=== PATIENT | female | born 1975 | race Caucasian/White ===

== ENCOUNTER 2023-10-03 15:58 | Emergency (ER) | payer OTHER, SELFPAY ==
--- NOTE | ~2023-10-03 | CT_ITS ---
CT brain wo con Ordering provider: Yvrose Torres PA-C History: 48 years Female with . headache, facial paresthesias . Comparison: None. Technique: CT of the head without contrast. Bones FINDINGS: BRAIN PARENCHYMA AND CSF SPACES: No midline shift, mass effect or hemorrhage. The brain parenchyma a nd CSF spaces are otherwise normal. VISUALIZED PARANASAL SINUSES: Left maxillary sinus disease. MASTOIDS: Well aerated. BONES: The bones appear intact. SOFT TISSUES: Visualized nasopharynx is normal. Superficial soft tissues are normal. IMPRESSION: No acute intracranial findings. Reviewed, dictated and finalized at location A.
[2023-10-03 16:00] VITALS: BP 166/95; PULSE 108; RESP 20; TEMP 36.4; O2SAT 98
--- NOTE | 2023-10-03 16:09 | ED.HA ---
HPI - Headache General Chief Complaint: Headache Stated Complaint: trouble swallowing Time Seen by Provider: 10/03/23 16:09 Focused HPI: This is a 48 year old female that presents to the emergency department for headache. Ongoing over the last couple of hours. Associated with facial paresthesias. Also reporting feeling like she is having difficulty swallowing. Denies vomiting, focal numbness or weakness. GENERAL: Well-appearing, well-nourished, and in no acute distress. HEAD: Normocephalic, atraumatic. CHEST: Clear to auscultation. ?No respiratory distress. HEART: Regular rate and rhythm.? NEURO: ?Alert and oriented x3. Patient screened in triage and initial orders placed.? ?Additional care and disposition to be based upon?diagnostic testing and treatment. Course Vital Signs Vital signs: Vital Signs Temperature 97.6 F 10/03/23 16:00 Pulse Rate 108 H 10/03/23 16:00 Respiratory Rate 20 10/03/23 16:00 Blood Pressure 166/95 H 10/03/23 16:00 Pulse Oximetry 98 10/03/23 16:00 Oxygen Delivery Room Air 10/03/23 16:00 Temperature 97.6 F 10/03/23 16:00 Pulse Rate 108 H 10/03/23 16:00 Respiratory Rate 20 10/03/23 16:00 Blood Pressure 166/95 H 10/03/23 16:00 Pulse Oximetry 98 10/03/23 16:00 Oxygen Delivery Room Air 10/03/23 16:00 MDM - Headache MDM Narrative Medical decision making narrative: Patient eloped after MSE before any further evaluation or management Lab Data 10/03/23 17:48 10/03/23 17:48 Labs: Lab Results 10/03/23 Range/Units 17:48 WBC Pending RBC Pending Hgb Pending Hct Pending MCV Pending MCH Pending MCHC Pending RDW Pending Plt Count Pending MPV Pending Immature Gran % (Auto) Pending Neut % (Auto) Pending Lymph % (Auto) Pending [place] % (Auto) Pending Eos % (Auto) Pending Baso % (Auto) Pending Lymph # (Auto) Pending [place] # (Auto) Pending Eos # (Auto) Pending Baso # (Auto) Pending Abs Immat Gran (auto) Pending Absolute Neuts (auto) Pending Absolute Nucleated RBC Pending Nucleated RBC % Pending PT Pending INR Pending APTT Pending Sodium Pending Potassium Pending Chloride Pending Carbon Dioxide Pending Anion Gap Pending BUN Pending Creatinine Pending Estim Creat Clear Calc Pending Estimated GFR Pending Glucose Pending Calcium Pending Total Bilirubin Pending AST Pending ALT Pending Alkaline Phosphatase Pending Total Protein Pending Albumin Pending Discharge Plan Discharge Patient Disposition: Left Without Being Sn Triaged Follow-up/Referrals: PHYSICIAN NOT ON STAFF,NONSTAFF [Primary Care Provider] -
[2023-10-03 17:56] LABS: Hematocrit 38.2 % (37.0-47.0); Hemoglobin 13.4 g/dL (12.0-15.0); Immature Platelet Fraction Pct 3.8 % (0.9-11.2); Mean Corpuscular HGB Conc 35.1 g/dl (32-36); Mean Corpuscular Hemoglobin 35.9 pg (26-34); Mean Corpuscular Volume 102.4 fl (80-100); Mean Platelet Volume 9.7 fl (7.4-10.4); Platelet Count Result 45 k/mm3 (150-375); Red Blood Count 3.73 M/mm3 (4.2-5.4); Red Cell Distribution Width 13.7 % (11.5-14.5); White Blood Count 6.5 K/mm3 (4.5-10.0)
--- NOTE | 2023-10-03 17:58 | PC.NURSE ---
Patient leaving with parent. Patient ambulatory out of ED with steady gait and in no obvious distress.
[2023-10-03 18:02] LABS: INR 0.9; Prothrombin Time 12.6 Seconds (11.1-14.7)
[2023-10-03 18:03] LABS: Partial Thromboplastin Time 27.3 Seconds (22.3-36.8)
[2023-10-03 18:06] LABS: Alanine Aminotransferase 118 U/L (6-35); Alkaline Phosphatase 214 U/L (38-126); Anion Gap 20 mmol/L (4-12); Aspartate Amino Transferase 389 U/L (14-36); Bilirubin,Total 1.5 mg/dL (0.2-1.3); Blood Urea Nitrogen 8 mg/dL (7-17); Calcium 8.4 mg/dL (8.4-10.2); Carbon Dioxide 29 mmol/L (22-30); Chloride 94 mmol/L (98-107); Estimated CRCL calculation 93 ml/min; Estimated Glomerular Filt Rate > 60; Glucose 91 mg/dL (65-110); Potassium 3.1 mmol/L (3.4-5.0); Sodium 143 mmol/L (137-145)
[2023-10-03 18:58] LABS: Band Neutrophils Percent 2 % (0-6); Lymphocytes Absolute Manual 2.14 K/mm3 (1.1-4.5); Monocytes Absolute Manual 0.45 K/mm3 (0.1-0.90); Monocytes Percent Manual 7 % (3-9); Neutrophils Percent Manual 58 % (46-73); Platelet Estimate Decreased (Adequate); Schistocytes None Seen; Total Cells Counted 100
== END 2023-10-03 18:24 | disposition left against medical advice (07) ==
LOC: ANHED 18:09
PROVIDERS: Emergency Provider Physician Assistant
DX: R51.9 Headache, unspecified (principal)
CPT/HCPCS: 36415; 70450; 80053; 85025; 85055; 85610; 85730; 99199

== ENCOUNTER 2023-10-05 12:54 | Emergency (ER) | payer OTHER, SELFPAY ==
[2023-10-05 13:09] VITALS: BP 165/83; PULSE 115; RESP 18; TEMP 36.7; O2SAT 98
--- NOTE | 2023-10-05 13:37 | ED.URI ---
HPI - URI/Sore Throat General Chief Complaint: Upper Respiratory Infection Stated Complaint: Swollen Glands Time Seen by Provider: 10/05/23 13:37 Source: patient Mode of arrival: ambulatory Limitations: no limitations History of Present Illness HPI Narrative: 48-year-old female presents with complaint of sinus congestion, postnasal drainage, runny nose for the past 2-3 weeks. Is visiting here from [place] due to her dad being ill. Is taking 1000 mg amoxicillin that she got from a friend times 14 days. Afebrile. Not taking any [id number] antihistamines because she does not like taking medications . Denies cough. No chest pain or shortness of breath. Was seen in the ER 2 days ago and had head CT. Showed sinus disease . Patient left without being seen. All systems reviewed and negative except as noted above. Related Data Allergies Allergy/AdvReac Type Severity Reaction Status Date / Time No Known Allergies Allergy Verified 10/05/23 13:19 Review of Systems Review of Systems: CONSTITUTIONAL: Denies fever, chills, or sweats. EYES: Denies visual changes, redness, or discharge. ENT: Reports rhinorrhea, congestion. Denies sore throat, or otalgia. CARDIOVASCULAR: Denies chest pain, palpitations, or edema. RESPIRATORY: Denies cough or dyspnea. GASTROINTESTINAL: Denies abdominal pain, nausea, vomiting, or diarrhea. GENITOURINARY: Denies dysuria or hematuria. SKIN: Denies rash or itching. MUSCULOSKELETAL: Denies back pain, joint pain, or myalgia. NEUROLOGIC: Denies headache, numbness, or weakness. PSYCHIATRIC: Denies anxiety or depression. All other systems reviewed are negative, except as documented in HPI. PMFSH Social History Social History (Updated 10/05/23 @ 13:42 by Gwen Reardon NP) Alcohol intake: current Drinks per week: 7 Alcohol use details: drinks at least 5-6 shots of whiskey daily Comments At time of signature, agree with nursing past medical, surgical, social and family history. There is no relevant family history pertinent to the presenting complaint. Exam Narrative: GENERAL: This is a well-nourished, well-developed patient, in no apparent distress. HEAD: normocephalic, atraumatic. EYES: PERRL. Sclera clear/white. Vision is grossly intact. EARS: External ears normal, auditory canals clear and without drainage, TMs normal without perforation. Hearing grossly intact. NOSE: External nose normal with mild congestion, clear nasal drainage, erythema and swelling to bilateral nares. THROAT: Mucous membranes moist, Erythema postnasal drainage NECK: Neck supple, non-tender without lymphadenopathy, masses or thyromegaly. CARDIOVASCULAR: Regular rate and rhythm without murmurs, gallops, or rubs. RESPIRATORY: Clear to auscultation. Breath sounds equal bilaterally. No wheezes, rales, or rhonchi. SKIN: warm, Dry, intact with no suspicious lesions or rash, good texture and turgor. NEURO: awake, alert, and oriented to person, place and time. There were no obvious focal neurologic abnormalities. EXTREMITIES: No joint tenderness, effusion, or edema noted. Course Course Level of Care: Express Care Visit Vital Signs Vital signs: Vital Signs Temperature 36.7 C 10/05/23 13:09 Pulse Rate 115 H 10/05/23 13:09 Respiratory Rate 18 10/05/23 13:09 Blood Pressure 165/83 H 10/05/23 13:09 Pulse Oximetry 98 10/05/23 13:09 Oxygen Delivery Room Air 10/05/23 13:09 Temperature 36.7 C 10/05/23 13:09 Pulse Rate 115 H 10/05/23 13:09 Respiratory Rate 18 10/05/23 13:09 Blood Pressure 165/83 H 10/05/23 13:09 Pulse Oximetry 98 10/05/23 13:09 Oxygen Delivery Room Air 10/05/23 13:09 reviewed MDM - URI/Sore Throat MDM Narrative Medical decision making narrative: Reviewed patient's labs from ER visit 09/30. patient's liver enzymes elevated. Discussed this with patient. She had admitted to drinking whiskey daily. States approximately 5-6 shots. Di
== END 2023-10-05 13:35 | disposition home or self-care (01) ==
PROVIDERS: Emergency Provider Nurse Practitioner Family; PCP Emergency Medicine
DX: J30.9 Allergic rhinitis, unspecified (principal); R94.5 Abnormal results of liver function studies
CPT/HCPCS: 99213; G0463

== ENCOUNTER 2023-10-12 08:23 | Emergency (ER) | payer OTHER, SELFPAY ==
[2023-10-12 08:34] VITALS: BP 168/88; PULSE 130; RESP 16; TEMP 36.4; O2SAT 100
[2023-10-12 08:35] VITALS: BP 168/88; PULSE 130; RESP 16; TEMP 36.4; O2SAT 100
[2023-10-12 09:00] VITALS: PULSE 123; O2SAT 98
--- NOTE | 2023-10-12 09:19 | ED.URI ---
HPI - URI/Sore Throat General Chief Complaint: Upper Respiratory Infection Stated Complaint: cough, runny nose Time Seen by Provider: 10/12/23 08:42 Source: patient, RN notes reviewed and old records reviewed Mode of arrival: ambulatory Limitations: no limitations History of Present Illness HPI Narrative: Patient presents today complaining of chronic cough and rhinorrhea for the past year, after moving from [place] to [place]. She also complains of a headache since last night. Patient was seen 1 week ago at [facility] for same symptoms, diagnosed with allergic sinusitis and prescribed a Medrol Dosepak, Claritin, and Flonase. She only picked up the Medrol Dosepak from the pharmacy and has finished it stating it did not help her symptoms much. She has not tried the Claritin or Flonase. Two days Prior to her previous visit, she visited [facility] ER. Head CT was done, but she did not stay for the visit. The has CT was read as sinus disease in the left maxillary sinus. Also prior to her last visit, patient took 14 days of amoxicillin, 1000 mg b.i.d., borrowed from a friend. States these antibiotics did not help her symptoms as well. She is hoping to get another antibiotic today during her visit. Related Data Home Medications Medication Instructions Recorded Confirmed No Home Medications 10/12/23 10/12/23 Allergies Allergy/AdvReac Type Severity Reaction Status Date / Time methylprednisolone AdvReac Nausea and Verified 10/12/23 08:34 [From Medrol] Vomiting Review of Systems Review of Systems: CONSTITUTIONAL: Denies body aches, fever, chills, or sweats. EYES: Denies visual changes, redness, or discharge. ENT: Denies congestion, sore throat, or otalgia.+ rhinorrhea, postnasal drip CARDIOVASCULAR: Denies chest pain, palpitations, or edema. RESPIRATORY: Denies dyspnea.+ cough GASTROINTESTINAL: Denies abdominal pain, nausea, vomiting, or diarrhea. GENITOURINARY: Denies dysuria or hematuria. SKIN: Denies rash, itching, or wounds. MUSCULOSKELETAL: Denies back pain, joint pain, or myalgia. NEUROLOGIC: Denies numbness, tingling, or weakness.+ headache PSYCH: Denies depression or anxiety. [facility] Social History Social History Alcohol intake: current Drinks per week: 7 Alcohol use details: drinks at least 5-6 shots of whiskey daily Comments At time of signature, I have reviewed and agree with nursing past medical, surgical, social and family history unless otherwise noted. Please see nursing chart for further information. There is no relevant family history pertinent to the presenting complaint Exam Narrative: GENERAL: Well-appearing, well-nourished, and in no acute distress. HEAD: Normocephalic, atraumatic. EYES: EOMI. No redness or drainage. Conjunctivae normal. ENT: Mucous membranes pink and moist. Nares clear. Nasal turbinates edematous with rhinorrhea. TMs normal bilaterally. Throat normal with small amount of postnasal drainage. Uvula midline. NECK: Normal AROM. Supple. No lymphadenopathy. CHEST: No respiratory distress. Clear to auscultation. HEART: Regular rate and rhythm. No murmur appreciated. EXTREMITIES: Normal range of motion. No edema. SKIN: Warm, dry, no rash. Capillary refill normal. Normal skin turgor. NEURO: No focal deficits. Alert and oriented x3. Gait steady. PSYCH: Normal affect. No signs of depression or anxiety. Course Course Level of Care: Express Care Visit Vital Signs Vital signs: Vital Signs Temperature 97.6 F 10/12/23 08:34 Pulse Rate 130 H 10/12/23 08:34 Respiratory Rate 16 10/12/23 08:34 Blood Pressure 168/88 H 10/12/23 08:34 Pulse Oximetry 100 10/12/23 08:34 Oxygen Delivery Room Air 10/12/23 08:34 Temperature 97.6 F 10/12/23 08:35 Pulse Rate 123 H 10/12/23 09:00 Respiratory Rate 16 10/12/23 08:35 Blood Pressure 168/88 H 10/12/23 08:35 Pulse Oximetry
== END 2023-10-12 09:00 | disposition home or self-care (01) ==
PROVIDERS: Emergency Provider Nurse Practitioner; PCP Family Medicine
DX: J30.9 Allergic rhinitis, unspecified (principal); K21.9 Gastro-esophageal reflux disease without esophagitis; Z86.16 Personal history of COVID-19
CPT/HCPCS: 99211; G0463

== ENCOUNTER 2023-10-12 14:32 | Observation (INO) | payer OTHER, SELFPAY ==
[2023-10-12] VITALS (11 sets, daily range): BP systolic 117–160; BP diastolic 67–106; PULSE 83–120; RESP 16–25; TEMP 36.8–37.1; O2SAT 99–100
--- NOTE | ~2023-10-12 | CT_ITS ---
EXAMINATION: CT brain wo con DATE: 10/12/2023 16:41 INDICATION: New onset seizure TECHNIQUE: Computed tomography (CT) of the head was performed without intravenous contrast. Sagittal and coronal reconstructions were performed. The mA was adjusted according to patient size. Iterative reconstruction technique was employed. The dose-length product was 529.67 mGy-cm. COMPARISON: head CT dated 10/03/23 FINDINGS: No acute intracranial hemorrhage, acute infarction or abnormal extra axial fluid collection. There is mild scattered nonspecific white matter hypoattenuation which is disproportionate for age. Ventricle s are normal and symmetric. No mass/mass effect. The orbits, paranasal sinuses and mastoid air cells are normal. IMPRESSION: 1. Mild scattered white matter hypoattenuation which is disproportionate for age. The differential di agnosis includes premature chronic small vessel ischemic disease (especially if the patient has cardi ovascular risk factors), demyelinating disease such as multiple sclerosis or acute disseminated encep halomyelitis (ADEM), drug/substance abuse, vasculitis, or reactive astrocytosis (gliosis) secondary t o nonspecific etiology. Could consider follow-up brain MRI for further evaluation as clinically indic ated. Reviewed, dictated and finalized at location A. IMPRESSION: 1. Mild scattered white matter hypoattenuation which is disproportionate for ag e. The differential diagnosis includes premature chronic small vessel ischemic disease (especially if the patient has cardiovascular risk factors), demyelinat ing disease such as multiple sclerosis or acute disseminated encephalomyelitis (ADEM), drug/substance abuse, vasculitis, or reactive astrocytosis (gliosis) se condary to nonspecific etiology. Could consider follow-up brain MRI for further evaluation as clinically indicated.
--- NOTE | ~2023-10-12 | US_ITS ---
EXAMINATION: US right upper quadrant DATE: 10/13/2023 09:38 INDICATION: Transaminitis. TECHNIQUE: Multiple grayscale and Doppler ultrasound images of the abdomen were obtained. COMPARISON: None FINDINGS: The visualized portions of the head and body of the pancreas are normal. There is diffuse h epatic steatosis. There is normal flow in main portal vein. The gallbladder is absent. The common mary t is normal and measures 2 mm. IMPRESSION: 1. Diffuse hepatic steatosis. Reviewed, dictated and finalized at location A.
--- NOTE | ~2023-10-12 | US_ITS ---
EXAMINATION: US pelvic complete w TV DATE: 10/13/2023 09:38 INDICATION: Menorrhagia. TECHNIQUE: Multiple transabdominal and transvaginal sonographic images of the pelvis were obtained. COMPARISON: None. FINDINGS: TRANSABDOMINAL ULTRASOUND: The uterus measures 5.9 x 2.9 x 4.5 cm. There is no free fluid in the pelvis. TRANSVAGINAL ULTRASOUND: The endometrial complex measures 4 mm in thickness. There are nabothian cysts in the cervix. The righ t ovary measures 2.7 x 1.2 x 1.7 cm. The left ovary measures 2.5 x 1.6 x 1.5 cm. There is normal vasc ular flow in the ovaries. IMPRESSION: 1. No etiology for the patient's symptoms. Reviewed, dictated and finalized at location A.
--- NOTE | 2023-10-12 16:22 | ECG_ITS ---
Test Date: 2023-10-12 17:49:33 Measurements Intervals [place] Rate: 107 P: 52 AR: 150 QRS: 46 QRSD: 78 T: -21 QT: 336 QTc: 450 Interpretive Statements SINUS TACHYCARDIA NONSPECIFIC ST & T-WAVE ABNORMALITY ABNORMAL ECG No previous ECG available for comparison Electronically Signed On 10-12-2023 18:24:21 CDT by Mark Owens M.D.
--- NOTE | 2023-10-12 16:24 | ED.AMS ---
HPI - Altered Mental Status General Chief Complaint: Altered Mental Status <Goldy MoonYURIDIA - Last Filed: 10/12/23 16:26> Stated Complaint: ams <Goldy MoonYURIDIA - Last Filed: 10/12/23 16:26> Time Seen by Provider: 10/12/23 16:24 <Goldy MoonYURIDIA - Last Filed: 10/12/23 16:26> patient presents via ems after having a 5 minutes witnessed seizure by her . patient's describes it as a grand mal seizure. patient had 5 minutes of post-ictal. patient has no hx of seizure or any medical issues. PE: A&OX3, tachycardic with no murmur, BS CTA, GCS 15 <Goldy MoonYURIDIA - Last Filed: 10/12/23 16:26> patient presents via ems after having a 5 minutes witnessed seizure by her . patient's describes it as a grand mal seizure. patient had 5 minutes of post-ictal. patient has no hx of seizure or any medical issues. PE: A&OX3, tachycardic with no murmur, BS CTA, GCS 15 <Andi Whatley MD - Last Filed: 10/12/23 22:36> History of Present Illness HPI narrative: This is a 40-year-old female presenting ED with a chief complaint of seizure. Patient has been having headaches for the last month. She has been diagnosed with a sinus section and been on antibiotics with minimal improvement. She has continued to not improve and then she stopped drinking 4 days ago. Earlier today boyfriend saw her have a tonic clonic seizure the last approximately 5 minutes. It then resolved. At this time the patient is still complaining of a headache. She is tremulous. Patient states she typically drinks 4-5 whiskey shooters per day. Her boyfriend states that she thinks a ?large amount. Patient denies fevers chills nausea vomiting diarrhea, chest pain, difficulty breathing and abdominal pain, lower extremity edema, history of blood clots Patient also notes that she has been having heavy vaginal bleeding for the last 1 month. No history of bleeding diathesis. <Andi Whatley MD - Last Filed: 10/12/23 22:36> Related Data Home Medications: Home Medications Medication Instructions Recorded Confirmed No Home Medications 10/12/23 10/12/23 <Goldy Moon X [employer] - Last Filed: 10/12/23 16:26> Allergies/Adverse Reactions: Allergies Allergy/AdvReac Type Severity Reaction Status Date / Time methylprednisolone AdvReac Nausea and Verified 10/12/23 08:34 [From Medrol] Vomiting <Goldy LarajuvenalalbaCHRISTINAN - Last Filed: 10/12/23 16:26> [facility] Past Medical History Medical History: Medical History ETOH abuse <Goldy Moon [employer] - Last Filed: 10/12/23 16:26> Social History Social History: Social History Alcohol intake: current Drinks per week: 7 Alcohol use details: drinks at least 5-6 shots of whiskey daily <Goldy MoonCHRISTINAN - Last Filed: 10/12/23 16:26> Exam Narrative: APPEARANCE: Tremulous, anxious. Head: atraumatic. EYES: EOMI, NOSE: Atraumatic NECK: Trachea midline RESPIRATORY: No increased rate of breathing, clear to auscultation CARDIOVASCULAR: Tachycardic, no peripheral edema ABDOMINAL: Soft nontender no guarding or rebound MUSCULOSKELETAl: No obvious deformities NEURO: Alert. Cranial nerves 2-12 grossly intact. Sensation light touch, motor function cerebellar function intact for 4 extremities. Gait exam was normal. SKIN:: Warm, dry. Normal color PSYCHIATRIC: Normal affect <Andi Whatley MD - Last Filed: 10/12/23 22:36> Course Vital Signs Vital signs: Vital Signs Temperature 98.8 F 10/12/23 14:33 Pulse Rate 120 H 10/12/23 14:33 Respiratory Rate 16 10/12/23 14:33 Blood Pressure 136/81 10/12/23 14:33 Pulse Oximetry 100 10/12/23 14:33 Temperature 98.6 F 10/12/23 21:31 Pulse Rate 95 10/12/23 22:01 Respiratory Rate 17 10/12/23 22:01 Blood Pressure 117/106 H 10/12/23 22:01 Pulse Oximetry 100 10/12/23 22:01 Oxygen Delivery R
[2023-10-12 16:39] LABS: Basophils Percent Auto 0.1 % (0.2-1.2); Eosinophils Percent Auto 0.4 % (0-4.4); Hematocrit 26.9 % (37.0-47.0); Hemoglobin 9.2 g/dL (12.0-15.0); Immature Granulocyte Absolute 0.04 K/mm3 (0.00-0.031); Immature Granulocyte Percent A 0.5 % (0-0.5); Immature Platelet Fraction Pct 4.6 % (0.9-11.2); Lymphocytes Absolute Auto 0.88 K/mm3 (0.9-3.2); Lymphocytes Percent Auto 11.4 % (18.3-44.2); Mean Corpuscular HGB Conc 34.2 g/dl (32-36); Mean Corpuscular Hemoglobin 35.9 pg (26-34); Mean Corpuscular Volume 105.1 fl (80-100); Mean Platelet Volume 9.8 fl (7.4-10.4); Monocytes Absolute Auto 0.5 K/mm3 (0.1-0.6); Monocytes Percent Auto 6.7 % (2.6-8.5); Neutrophils Absolute Auto 6.3 K/mm3 (1.3-6.7); Neutrophils Percent Auto 80.9 % (45.5-73.1); Nucleated Red Blood Cells Perc 0.3 % (0.0-0.2); Platelet Count Result 104 k/mm3 (150-375); Red Blood Count 2.56 M/mm3 (4.2-5.4); Red Cell Distribution Width 13.5 % (11.5-14.5); White Blood Count 7.7 K/mm3 (4.5-10.0)
[2023-10-12 16:50] LABS: Prothrombin Time 13.2 Seconds (11.1-14.7)
[2023-10-12 16:51] LABS: Partial Thromboplastin Time 22.4 Seconds (22.3-36.8)
[2023-10-12 16:52] LABS: Lactic Acid Reflex 1.1 mmol/L (0.7-2.0)
[2023-10-12 16:54] LABS: Add Urine Microscopic? YES; Appearance Urine Clear (Clear); Bacteria Urine None Seen /hpf; Bilirubin Urine Negative (Negative); Blood Urine 2+ (Negative); Color Urine Yellow (Yellow); Glucose Urine UA Negative (Negative); Ketones Urine 1+ mg/dL (Negative); Leukocyte Esterase Ur Negative LEU/UL (Negative); Nitrate Urine Negative (Negative); Non Pathogenic Casts 0-2; Protein Urine Trace mg/dL (Negative); RBC Urine 0-2 /hpf (0-2); Specific Grav Ur 1.008 (1.001-1.035); Squamous Epithelial Cell Urine None Seen /hpf (Few); WBC Urine 0-5 /hpf (0-3)
[2023-10-12 16:55] LABS: Alanine Aminotransferase 83 U/L (6-35); Albumin Level 4.9 g/dL (3.5-5.1); Alkaline Phosphatase 138 U/L (38-126); Anion Gap 15 mmol/L (4-12); Aspartate Amino Transferase 151 U/L (14-36); Bilirubin,Total 1.8 mg/dL (0.2-1.3); Blood Urea Nitrogen 11 mg/dL (7-17); Calcium 9.6 mg/dL (8.4-10.2); Carbon Dioxide 33 mmol/L (22-30); Chloride 84 mmol/L (98-107); Estimated CRCL calculation 91 ml/min; Estimated Glomerular Filt Rate > 60; Glucose 148 mg/dL (65-110); Potassium 2.6 mmol/L (3.4-5.0); Sodium 132 mmol/L (137-145)
[2023-10-12 17:01] LABS: Amphetamine Screen Urine Negative (Negative); Barbiturate Screen Urine Negative (Negative); Benzodiazepines Screen Urine Negative (Negative); Cannabinoid Screen Urine Negative (Negative); Cocaine Screen Urine Negative (Negative); Methadone Screen Urine Negative (Negative); Opiate Screen Urine Negative (Negative); Phencyclidine Screen Urine Negative (Negative)
[2023-10-12 17:08] LABS: Troponin I 0.068 ng/mL (0.000-0.034)
[2023-10-12 19:33] LABS: Fibrinogen 459 mg/dl (215-510)
[2023-10-12] MEDS: diazePAM INJ (*CRX) 10 MG/2 ML SYRINGE IV PUSH (19:52)
[2023-10-12] MEDS: POTASSIUM CHLORIDE 20 MEQ PACKET (FOR LIQUID) 40 MEQ PO (19:52)
[2023-10-12 19:59] LABS: Alveolar/Arterial O2 Gradient 29.6 mmHg; Base Excess ABG 7.1 mEq/l (+/-2.0); Fractional Inspired Oxygen 21 %; HCO3 ABG 29.5 mEq/l (22.0-26.0); Oxygen Content ABG 12.2 %vol (16.0-22.0); Oxygen Saturation ABG 97.3 % (95.0-100.0); Oxyhemoglobin 95.3 % THb (90.0-100.0); PCO2 ABG 32.9 mmHg (35.0-45.0); PO2 ABG 80.7 mmHg (80.0-100.0); PO2 FiO2 Ratio Arterial Blood 3.84 %
[2023-10-12 20:02] LABS: Device ROOM AIR; Modified Allen's Test Pass; Site Drawn RIGHT RADIAL
[2023-10-12] MEDS: SODIUM CHLORIDE 0.9% IV 2,000 ML 999 ML IV CONT (20:56)
[2023-10-12] MEDS: POTASSIUM CHLORIDE INJ 40 MEQ in SODIUM CHLORIDE 0.9% IV 500 ML 130 MEQ IVPB (20:56)
[2023-10-12 21:17] LABS: Ethanol < 10 mg/dL (<10)
[2023-10-12] MEDS: THIAMINE 500 MG/NS 100 ML 500 MG/100 ML BAG 200 MG IVPB (22:26)
[2023-10-12 23:13] LABS: Glucose Point of Care 135 mg/dl (65-105)
--- NOTE | 2023-10-12 23:27 | ADMGEN ---
This patient, Bianca Ribeiro, was admitted to IMU Room 232-01 on 10/12/23 at 2327. Patient/family oriented to hospital policies and general routines including ID bracelet, bed and alarms, visiting hours, pain management, procedures, bathroom and other care routines, personal items, smoking policy, room service/diet, and visiting hours. Information on how to activate the Rapid Response Team has been discussed. Patient/Family are encouraged to report perceived risks to care and to ask questions if they do not understand what they are told or what they should do.
[2023-10-12 23:59] LABS: Glucose Point of Care 123 mg/dl (65-105)
[2023-10-13] VITALS (16 sets, daily range): BP systolic 128–174; BP diastolic 62–83; PULSE 70–111; RESP 16–18; TEMP 36.2–37.1; O2SAT 100
[2023-10-13 00:03] LABS: Troponin I 0.055 ng/mL (0.000-0.034)
[2023-10-13] MEDS: chlordiazePOXIDE (*CRX) 25 MG CAPSULE PO ×5 (00:55→23:39)
--- NOTE | 2023-10-13 02:57 | PM.IMHP ---
H&P: HPI History of Present Illness Date/Time: 10/12/23 21:30 Chief Complaint: Seizure Narrative: 48-year-old female with a past medical history of chronic alcohol abuse who presented to the ER from home via EMS after her boyfriend witnessed a seizure. The patient reports that she only drinks 4 shots of whiskey a day. However patient's boyfriend reported to the ER staff that the patient drinks much heavier amounts of alcohol and the patient and her boyfriend got into a disagreement about this. The patient reports that she has felt unwell for about a month. She has been feeling facial swelling in her maxillary region. She had went to the ER on the due to generalized headache and facial paresthesias. She also reported subjective sensation of having difficulty swallowing. She had labs at that time that also demonstrated transaminitis, normal hemoglobin, elevated MCV and mild hypokalemia as well as transaminitis and elevated bilirubin.. She had initial CT scan which demonstrated left maxillary sinus disease but was otherwise unremarkable for acute findings. The patient left without completing evaluation after initial triage assessment. She then went to Urgent Care on the complaining of sinus congestion postnasal drip runny nose for 2-3 weeks and again nose having sensation facial fullness in the maxillary region and subjective report of swelling in the region. She had been taking a 1000 mg of amoxicillin that she got from a friend and took the medication for 14 days. She had not tried taking any antihistamines. She was given a prescription for Medrol Dosepak and Flonase as well as clear 10. She did take the prednisone but reported it cause some stomach upset she did have a few episodes of vomiting. She denies any coffee-ground emesis or hematemesis. Since finishing the steroid she reports that she has a sensation of fullness in her neck and that her sensation of sinus congestion facial fullness is not in change or improved. She reports that during 1 of her visits to urgent care they did discuss her elevated liver enzymes with her and she became concerned. For this reason she quit drinking alcohol somewhere between 3-5 days ago. Depending on which report that the patient provided. She a states that she does not usually get shaky with when she has not had any alcohol. But currently the patient is noted to be tremulous and mildly anxious. She year does report feeling confused. Her boyfriend had witnessed seizure activity while patient was watching TV on the couch. Reported activity was about 5 minutes and was tonic clonic in nature with ?foaming at the mouth?. Patient was postictal. She did not have any loss of bowel or bladder control. She denies any headache but reports facial fullness still. She does have intermittent symptoms of GERD. She has not had any diarrhea, melena or hematochezia. The patient's repeat labs today demonstrated drop in hemoglobin of 4 g. The patient reports that she has been having some dysfunctional uterine bleeding with what sounds like intermittent spotting between periods and this month has been bleeding with some quarter to half dollar size clots which is unusual for her. Her platelet count on previous labs was below 50 and today is just over 100. She reports her last gynecologic visit was in March 2022 prior to moving here from [place]. She denies any petechiae. She does have some bruising to her left flank where she reports that she tripped over her dog's because she did not feel good and landed against something. She denies hitting her head or loss of consciousness with that event. In the ER patient received Librium 25 mg, diazepam 10 mg IV push, and Ativan 2 mg IV as well as 500 mg IV thiamin. Patient did have an elevated troponin in the ER but was noted to be significantly tachycardic. EKG consistent with sinus tachycardia with rate of [address] and T-wave abnormality. She denies any cardiac
[2023-10-13 03:41] LABS: Iron 64 ug/dL (37-170)
[2023-10-13] MEDS: SODIUM CHLORIDE 0.9% IV 1,000 ML 100 ML IV CONT (03:42)
[2023-10-13 03:51] LABS: Percent Iron Saturation 18 % (20-50)
[2023-10-13 04:40] LABS: Basophils Percent Auto 0.4 % (0.2-1.2); Eosinophils Absolute Auto 0.1 K/mm3 (0-0.3); Eosinophils Percent Auto 1.3 % (0-4.4); Hematocrit 23.6 % (37.0-47.0); Hemoglobin 7.9 g/dL (12.0-15.0); Immature Granulocyte Absolute 0.07 K/mm3 (0.00-0.031); Immature Granulocyte Percent A 0.9 % (0-0.5); Immature Platelet Fraction Pct 5.3 % (0.9-11.2); Immature Reticulocyte Fraction 27.3 % (3.0-15.9); Lymphocytes Absolute Auto 1.64 K/mm3 (0.9-3.2); Lymphocytes Percent Auto 21.5 % (18.3-44.2); Mean Corpuscular HGB Conc 33.5 g/dl (32-36); Mean Corpuscular Hemoglobin 36.2 pg (26-34); Mean Corpuscular Volume 108.3 fl (80-100); Mean Platelet Volume 10.1 fl (7.4-10.4); Monocytes Absolute Auto 0.5 K/mm3 (0.1-0.6); Monocytes Percent Auto 6.7 % (2.6-8.5); Neutrophils Absolute Auto 5.3 K/mm3 (1.3-6.7); Neutrophils Percent Auto 69.2 % (45.5-73.1); Platelet Count Result 99 k/mm3 (150-375); Red Blood Count 2.18 M/mm3 (4.2-5.4); Red Cell Distribution Width 13.7 % (11.5-14.5); Reticulocyte Hemoglobin Conten 37.9 pg (28.2-36.6); Reticulocyte Percent 5.41 % (0.7-4.3); Reticulocytes Absolute 0.12 10^6/uL (0.02-0.10); White Blood Count 7.6 K/mm3 (4.5-10.0)
[2023-10-13 04:51] LABS: Alanine Aminotransferase 67 U/L (6-35); Albumin Level 4.2 g/dL (3.5-5.1); Alkaline Phosphatase 125 U/L (38-126); Anion Gap 10 mmol/L (4-12); Aspartate Amino Transferase 145 U/L (14-36); Bilirubin,Total 1.5 mg/dL (0.2-1.3); Blood Urea Nitrogen 6 mg/dL (7-17); Calcium 8.4 mg/dL (8.4-10.2); Carbon Dioxide 29 mmol/L (22-30); Chloride 97 mmol/L (98-107); Estimated CRCL calculation 115 ml/min; Estimated Glomerular Filt Rate > 60; Glucose 123 mg/dL (65-110); Magnesium 0.9 mg/dL (1.6-2.3); Phosphorus 2.9 mg/dL (2.5-4.5); Potassium 3.3 mmol/L (3.4-5.0); Sodium 136 mmol/L (137-145)
[2023-10-13 05:00] LABS: Anisocytosis 1+; Hypochromasia 1+; Platelet Estimate Decreased (Adequate); Poikilocytosis 1+; Schistocytes None Seen
[2023-10-13 06:01] LABS: Folic Acid 6.5 ng/mL (2.76->20)
[2023-10-13 06:45] LABS: Glucose Point of Care 119 mg/dl (65-105)
[2023-10-13] MEDS: LORATADINE 10 MG TABLET PO (08:32)
[2023-10-13] MEDS: PANTOPRAZOLE 40 MG TABLET PO (08:32)
[2023-10-13] MEDS: THIAMINE HCL 100 MG TABLET PO (08:32)
[2023-10-13] MEDS: FOLIC ACID 1 MG TABLET PO (08:32)
[2023-10-13] MEDS: FLUTICASONE PROPIONATE 0.05% NA SPR 16 GM BTL (*BKC) 2 SPRAY NASAL (08:32)
[2023-10-13] MEDS: POTASSIUM CHLORIDE 20 MEQ ER TABLET 40 MEQ PO (11:20)
[2023-10-13] MEDS: MAGNESIUM SULF 4 GM/WATER100ML 4 GM/100 ML BAG IVPB (11:20)
[2023-10-13 11:54] LABS: Glucose Point of Care 177 mg/dl (65-105)
[2023-10-13 16:57] LABS: Glucose Point of Care 192 mg/dl (65-105)
--- NOTE | 2023-10-13 18:13 | WPDPN ---
Progress Note: A&P Assessment and Plan (1) Alcohol abuse: Code(s): F10.10 - Alcohol abuse, uncomplicated Status: Acute (2) Alcohol withdrawal seizure: Qualifiers: Complication of substance-induced condition: uncomplicated Qualified Code(s): F10.930 - Alcohol use, unspecified with withdrawal, uncomplicated; R56.9 - Unspecified convulsions Code(s): F10.939 - Alcohol use, unspecified with withdrawal, unspecified; R56.9 - Unspecified convulsions Status: Acute (3) Acute hypokalemia: Code(s): E87.6 - Hypokalemia Status: Acute (4) Anemia, macrocytic: Code(s): D53.9 - Nutritional anemia, unspecified Status: Acute (5) White matter changes: Status: Acute Plan 10/13/2023 interval history: history of daily drinking 4 to 5 whisky possibly more however patient had not been feeling well and stopped drinking and her boyfriend found her having seizures and brought her to the ER for further evaluation, most likely alcohol withdrawal seizures, she was started on CIWA protocol with Librium, and monitoring her electrolytes. patient c/o scratchy throat, no difficulty swallowing. neck pain or fever. patient boyfriend is present in the room. Subjective Date/time seen: 10/13/23 18:13 Interval history: Chief Complaint: Seizure H&C-QYR-Vcryryqmh: 48-year-old female with a past medical history of chronic alcohol abuse who presented to the ER from home via EMS after her boyfriend witnessed a seizure. The patient reports that she only drinks 4 shots of whiskey a day. However patient's boyfriend reported to the ER staff that the patient drinks much heavier amounts of alcohol and the patient and her boyfriend got into a disagreement about this. The patient reports that she has felt unwell for about a month. She has been feeling facial swelling in her maxillary region. She had went to the ER on the due to generalized headache and facial paresthesias. She also reported subjective sensation of having difficulty swallowing. She had labs at that time that also demonstrated transaminitis, normal hemoglobin, elevated MCV and mild hypokalemia as well as transaminitis and elevated bilirubin.. She had initial CT scan which demonstrated left maxillary sinus disease but was otherwise unremarkable for acute findings. The patient left without completing evaluation after initial triage assessment. She then went to Urgent Care on the complaining of sinus congestion postnasal drip runny nose for 2-3 weeks and again nose having sensation facial fullness in the maxillary region and subjective report of swelling in the region. She had been taking a 1000 mg of amoxicillin that she got from a friend and took the medication for 14 days. She had not tried taking any antihistamines. She was given a prescription for Medrol Dosepak and Flonase as well as clear 10. She did take the prednisone but reported it cause some stomach upset she did have a few episodes of vomiting. She denies any coffee-ground emesis or hematemesis. Since finishing the steroid she reports that she has a sensation of fullness in her neck and that her sensation of sinus congestion facial fullness is not in change or improved. She reports that during 1 of her visits to urgent care they did discuss her elevated liver enzymes with her and she became concerned. For this reason she quit drinking alcohol somewhere between 3-5 days ago. Depending on which report that the patient provided. She a states that she does not usually get shaky with when she has not had any alcohol. But currently the patient is noted to be tremulous and mildly anxious. She year does report feeling confused. Her boyfriend had witnessed seizure activity while patient was watching TV on the couch. Reported activity was about 5 minutes and was tonic clonic in nature with ?foaming at the mouth?. Patient was postictal. She did not have any loss of bowel or bladder control. Sh
[2023-10-13 20:16] LABS: Glucose Point of Care 220 mg/dl (65-105)
[2023-10-13 23:52] LABS: Glucose Point of Care 141 mg/dl (65-105)
[2023-10-14] VITALS (12 sets, daily range): BP systolic 129–153; BP diastolic 66–88; PULSE 76–117; RESP 16–20; TEMP 36.4–37; O2SAT 100
[2023-10-14 05:20] LABS: Hemoglobin 8.5 g/dL (12.0-15.0); Mean Corpuscular HGB Conc 32.7 g/dl (32-36); Mean Corpuscular Hemoglobin 35.6 pg (26-34); Mean Corpuscular Volume 108.8 fl (80-100); Platelet Count Result 102 k/mm3 (150-375); Red Blood Count 2.39 M/mm3 (4.2-5.4); Red Cell Distribution Width 13.8 % (11.5-14.5); White Blood Count 5.1 K/mm3 (4.5-10.0)
[2023-10-14 05:33] LABS: Alanine Aminotransferase 59 U/L (6-35); Albumin Level 3.9 g/dL (3.5-5.1); Alkaline Phosphatase 117 U/L (38-126); Anion Gap 8 mmol/L (4-12); Aspartate Amino Transferase 92 U/L (14-36); Bilirubin,Total 0.9 mg/dL (0.2-1.3); Blood Urea Nitrogen 4 mg/dL (7-17); Calcium 8.8 mg/dL (8.4-10.2); Carbon Dioxide 31 mmol/L (22-30); Chloride 97 mmol/L (98-107); Estimated CRCL calculation 115 ml/min; Estimated Glomerular Filt Rate > 60; Glucose 153 mg/dL (65-110); Magnesium 1.7 mg/dL (1.6-2.3); Sodium 136 mmol/L (137-145)
[2023-10-14] MEDS: chlordiazePOXIDE (*CRX) 25 MG CAPSULE PO (06:04)
[2023-10-14 06:44] LABS: Glucose Point of Care 143 mg/dl (65-105)
[2023-10-14] MEDS: THIAMINE HCL 100 MG TABLET PO (09:01)
[2023-10-14] MEDS: POTASSIUM CHLORIDE 20 MEQ ER TABLET 40 MEQ PO ×2 (09:01→13:36)
[2023-10-14] MEDS: MAGNESIUM OXIDE 400 MG TABLET PO (09:01)
[2023-10-14] MEDS: FOLIC ACID 1 MG TABLET PO (09:01)
[2023-10-14] MEDS: LORATADINE 10 MG TABLET PO (09:01)
[2023-10-14] MEDS: PANTOPRAZOLE 40 MG TABLET PO (09:02)
[2023-10-14] MEDS: FLUTICASONE PROPIONATE 0.05% NA SPR 16 GM BTL (*BKC) 2 SPRAY NASAL (09:04)
[2023-10-14 11:51] LABS: Glucose Point of Care 225 mg/dl (65-105)
[2023-10-14 12:49] LABS: Anion Gap 8 mmol/L (4-12); Blood Urea Nitrogen 6 mg/dL (7-17); Calcium 9.1 mg/dL (8.4-10.2); Carbon Dioxide 27 mmol/L (22-30); Chloride 96 mmol/L (98-107); Estimated CRCL calculation 115 ml/min; Estimated Glomerular Filt Rate > 60; Glucose 286 mg/dL (65-110); Magnesium 1.5 mg/dL (1.6-2.3); Potassium 3.3 mmol/L (3.4-5.0); Sodium 131 mmol/L (137-145)
[2023-10-14] MEDS: MAGNESIUM OXIDE 400 MG TABLET 800 MG PO (13:36)
--- NOTE | 2023-10-14 15:44 | WPDPN ---
Progress Note: A&P Assessment and Plan (1) Alcohol abuse: Code(s): F10.10 - Alcohol abuse, uncomplicated Status: Acute (2) Alcohol withdrawal seizure: Qualifiers: Complication of substance-induced condition: uncomplicated Qualified Code(s): F10.930 - Alcohol use, unspecified with withdrawal, uncomplicated; R56.9 - Unspecified convulsions Code(s): F10.939 - Alcohol use, unspecified with withdrawal, unspecified; R56.9 - Unspecified convulsions Status: Acute (3) Acute hypokalemia: Code(s): E87.6 - Hypokalemia Status: Acute (4) Anemia, macrocytic: Code(s): D53.9 - Nutritional anemia, unspecified Status: Acute (5) White matter changes: Status: Acute Plan 10/14/2023 interval history: history of daily drinking 4 to 5 whisky possibly more however patient had not been feeling well and stopped drinking 5 to 6 days ago and her boyfriend found her having seizures and brought her to the ER for further evaluation, most likely alcohol withdrawal seizures, she was started on CIWA protocol with Librium, and monitoring her electrolytes. patient with potassium and magnesium are low, will monitor and supplement, patient with seizures will be seen by a neurologist and further recommendation to follow patient boyfriend is present in the room Subjective Date/time seen: 10/14/23 15:44 Interval history: Chief Complaint: Seizure H&Y-XYR-Wlyplvtdi: 48-year-old female with a past medical history of chronic alcohol abuse who presented to the ER from home via EMS after her boyfriend witnessed a seizure. The patient reports that she only drinks 4 shots of whiskey a day. However patient's boyfriend reported to the ER staff that the patient drinks much heavier amounts of alcohol and the patient and her boyfriend got into a disagreement about this. The patient reports that she has felt unwell for about a month. She has been feeling facial swelling in her maxillary region. She had went to the ER on the due to generalized headache and facial paresthesias. She also reported subjective sensation of having difficulty swallowing. She had labs at that time that also demonstrated transaminitis, normal hemoglobin, elevated MCV and mild hypokalemia as well as transaminitis and elevated bilirubin.. She had initial CT scan which demonstrated left maxillary sinus disease but was otherwise unremarkable for acute findings. The patient left without completing evaluation after initial triage assessment. She then went to Urgent Care on the complaining of sinus congestion postnasal drip runny nose for 2-3 weeks and again nose having sensation facial fullness in the maxillary region and subjective report of swelling in the region. She had been taking a 1000 mg of amoxicillin that she got from a friend and took the medication for 14 days. She had not tried taking any antihistamines. She was given a prescription for Medrol Dosepak and Flonase as well as clear 10. She did take the prednisone but reported it cause some stomach upset she did have a few episodes of vomiting. She denies any coffee-ground emesis or hematemesis. Since finishing the steroid she reports that she has a sensation of fullness in her neck and that her sensation of sinus congestion facial fullness is not in change or improved. She reports that during 1 of her visits to urgent care they did discuss her elevated liver enzymes with her and she became concerned. For this reason she quit drinking alcohol somewhere between 3-5 days ago. Depending on which report that the patient provided. She a states that she does not usually get shaky with when she has not had any alcohol. But currently the patient is noted to be tremulous and mildly anxious. She year does report feeling confused. Her boyfriend had witnessed seizure activity while patient was watching TV on the couch. Reported activity was about 5 minutes and was tonic clonic in nature with ?f
--- NOTE | 2023-10-14 15:45 | PC.NURSE ---
This patient, Bianca Ribeiro, was transferred to [facility] on 10/14/23 at 1545. Personal belongings sent with patient. Report given to Parker HERNANDEZ. Appropriate documentation sent with patient.
--- NOTE | 2023-10-14 15:55 | PC.NURSE ---
Patient transferred to unit.
[2023-10-15] VITALS: PULSE 74
[2023-10-15 04:00] VITALS: PULSE 72
[2023-10-15 05:00] VITALS: BP 138/61; PULSE 81; RESP 18; TEMP 36.7; O2SAT 100
[2023-10-15 05:08] LABS: Hematocrit 25.1 % (37.0-47.0); Hemoglobin 8.4 g/dL (12.0-15.0); Immature Platelet Fraction Pct 4.9 % (0.9-11.2); Mean Corpuscular HGB Conc 33.5 g/dl (32-36); Mean Corpuscular Hemoglobin 36.7 pg (26-34); Mean Corpuscular Volume 109.6 fl (80-100); Platelet Count Result 143 k/mm3 (150-375); Red Blood Count 2.29 M/mm3 (4.2-5.4); Red Cell Distribution Width 14.4 % (11.5-14.5); White Blood Count 4.9 K/mm3 (4.5-10.0)
[2023-10-15 05:20] LABS: Alanine Aminotransferase 57 U/L (6-35); Albumin Level 3.9 g/dL (3.5-5.1); Alkaline Phosphatase 122 U/L (38-126); Anion Gap 8 mmol/L (4-12); Aspartate Amino Transferase 88 U/L (14-36); Bilirubin,Total 0.8 mg/dL (0.2-1.3); Blood Urea Nitrogen 9 mg/dL (7-17); Calcium 9.5 mg/dL (8.4-10.2); Carbon Dioxide 28 mmol/L (22-30); Chloride 98 mmol/L (98-107); Estimated CRCL calculation 110 ml/min; Estimated Glomerular Filt Rate > 60; Glucose 186 mg/dL (65-110); Magnesium 1.7 mg/dL (1.6-2.3); Potassium 4.5 mmol/L (3.4-5.0); Sodium 134 mmol/L (137-145)
[2023-10-15 08:00] VITALS: PULSE 78
[2023-10-15] MEDS: FLUTICASONE PROPIONATE 0.05% NA SPR 16 GM BTL (*BKC) 2 SPRAY NASAL (09:21)
[2023-10-15] MEDS: LORATADINE 10 MG TABLET PO (09:22)
[2023-10-15] MEDS: PANTOPRAZOLE 40 MG TABLET PO (09:22)
[2023-10-15] MEDS: MAGNESIUM OXIDE 400 MG TABLET PO (09:22)
[2023-10-15] MEDS: FOLIC ACID 1 MG TABLET PO (09:22)
[2023-10-15] MEDS: THIAMINE HCL 100 MG TABLET PO (09:22)
--- NOTE | 2023-10-15 11:43 | PM.DS ---
DS: Admitting Diagnosis Discharge Date 10/15/23 Admitting Diagnosis Altered Mental Status DS: Discharge Diagnosis Discharge Diagnosis (1) Alcohol abuse: Code(s): F10.10 - Alcohol abuse, uncomplicated Status: Acute (2) Alcohol withdrawal seizure: Qualifiers: Complication of substance-induced condition: uncomplicated Qualified Code(s): F10.930 - Alcohol use, unspecified with withdrawal, uncomplicated; R56.9 - Unspecified convulsions Code(s): F10.939 - Alcohol use, unspecified with withdrawal, unspecified; R56.9 - Unspecified convulsions Status: Acute (3) Acute hypokalemia: Code(s): E87.6 - Hypokalemia Status: Acute (4) Anemia, macrocytic: Code(s): D53.9 - Nutritional anemia, unspecified Status: Acute (5) White matter changes: Status: Acute (6) Alcoholic hepatitis: Qualifiers: Ascites presence: without ascites Qualified Code(s): K70.10 - Alcoholic hepatitis without ascites Code(s): K70.10 - Alcoholic hepatitis without ascites Status: Acute (7) Menorrhagia: Qualifiers: Menorrhagia type: with irregular cycle Qualified Code(s): N92.1 - Excessive and frequent menstruation with irregular cycle Code(s): N92.0 - Excessive and frequent menstruation with regular cycle Status: Acute (8) Elevated troponin: Code(s): R79.89 - Other specified abnormal findings of blood chemistry Status: Acute DS: Summary Hospital Course Reason for hospitalization: 48-year-old female with a past medical history of chronic alcohol abuse who presented to the ER from home via EMS after her boyfriend witnessed a seizure. Please see H&P for details. Hospital Course: Patient brought in to ED due to witnessed seizure. She has history of chronic alcohol abuse and recently stopped drinking. CT brain showing mild scattered white matter hypoattenuation which is disproportionate for age. Alcohol likely attributes to the greater than anticipated changes on CT of the brain. These changes are largely unchanged from prior CT from last month. Patient states symptoms including tremor and seizure activity for likely due to acute alcohol withdrawal. Patient wsa started on scheduled Librium and p.r.n. Ativan with dosing based on CIWA scores. Thiamin and folic acid supplementation were started. The patient had evidence of alcoholic hepatitis. Her transaminases are slightly improved compared to prior values that likely correlates with her recent cessation of alcohol use. Encouraged patient to continue with her alcohol cessation efforts. 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 However now she has an acute component of anemia. Reticulocyte count was high. No schistocytes seen. B12/foalte normal. Iron studies were normal except for TSat 18% with elevated ferritin. Patient may have significant drop in her hemoglobin due to vaginal bleeding. Pelvic US showig no acute findings. She was started on Protonix daily. Repeat HH low but stable. Patient had significant hypokalemia. Potassium was replaced and repeat normal. Patient does have elevated troponin likely due to demand ischemia from persistent tachycardia with alcohol withdrawal. Troponin is trending down. EKG showing sinus tachycardia and nonspecific ST and T wave changed. She had clinical improvement. She was refusing Librium. CIWA was mostly i the 1 range. She overall did well and was able to be discharged home on 10/15/23 Status at Discharge Cognitive/behavioral status at discharge: stable Time Spent with Patient Time attestation: Total time spent providing and/or coordinating discharge services: 35 minutes Time spent: Greater than 30 minutes Exam Narrative: AF 98.0 138/61 78 18 100% ra Gen - NARD Chest - CTA bilaterally, nml RR CV - RRR S1/S2 Abd - Soft, NT/ND, Positive BS Ext - No pedal edema Neuro - Alert a
== END 2023-10-15 12:30 | disposition home or self-care (01) ==
LOC: ANHED 21:56 → ANHIMU 10-13 00:16 → ANH2MED 10-15 12:00 → ANHIMU 10-16 08:24
PROVIDERS: Family Medicine; Nurse Practitioner Family; Admitting Provider Internal Medicine; Emergency Provider Emergency Medicine; Visit Provider Internal Medicine
DX: F10.130 Alcohol abuse with withdrawal, uncomplicated (principal); G40.89 Other seizures; E87.6 Hypokalemia; K70.10 Alcoholic hepatitis without ascites; D53.9 Nutritional anemia, unspecified; N92.1 Excessive and frequent menstruation with irregular cycle; R79.89 Other specified abnormal findings of blood chemistry; F17.210 Nicotine dependence, cigarettes, uncomplicated
CPT/HCPCS: 36415; 36600; 70450; 76705; 76830; 76856; 80048; 80053; 80307; 81001; 82248; 82607; 82728; 82746; 82805; 82948; 83540; 83550; 83605; 83735; 84100; 84443; 84484; 85025; 85027; 85046; 85055; 85384; 85610; 85730; 87040; 93005; 96361; 96365; 96366; 96367; 96375; 99285; A9270; G0378; G0379; J3360; J3411; J3475; J3480; J7030; J7040

== ENCOUNTER 2023-10-24 09:51 | Outpatient (CLI) | payer OTHER, SELFPAY ==
[2023-10-24 10:14] LABS: Hematocrit 33.5 % (37.0-47.0); Hemoglobin 10.5 g/dL (12.0-15.0); Mean Corpuscular HGB Conc 31.3 g/dl (32-36); Mean Corpuscular Hemoglobin 33.5 pg (26-34); Platelet Count Result 487 k/mm3 (150-375); Red Blood Count 3.13 M/mm3 (4.2-5.4); Red Cell Distribution Width 14.3 % (11.5-14.5)
[2023-10-24 10:15] LABS: White Blood Count 11.1 K/mm3 (4.5-10.0)
== END 2023-10-24 09:52 | disposition home or self-care (01) ==
LOC: ANHLAB 09:54
PROVIDERS: Visit Provider Internal Medicine
DX: D53.9 Nutritional anemia, unspecified (principal)
CPT/HCPCS: 36415; 85027

== ENCOUNTER 2024-01-27 16:59 | Emergency (ER) | payer OTHER, SELFPAY ==
--- NOTE | ~2024-01-27 | CT_ITS ---
EXAMINATION: CT brain wo con DATE: 01/27/2024 18:35 INDICATION: Fall / ETOH . TECHNIQUE: Computed tomography (CT) of the head was performed without intravenous contrast. The mA wa s adjusted according to patient size. Iterative reconstruction technique was employed. The dose-lengt h product was 605.33 mGy-cm. COMPARISON: 10/12/2023. FINDINGS: No acute intracranial hemorrhage or extra-axial fluid collection. No hydrocephalus, mass, or herniation. No acute ischemic infarct. Unremarkable dural venous sinus attenuation. No acute osseous abnormality. Small left frontal scalp contusion. Left maxillary mucosal thickening, aerated secretions in the right sphenoid sinus, the remaining aera jake spaces are clear. Mild chronic white matter change. Atherosclerotic intracranial calcifications IMPRESSION: No acute intracranial process. Aerated secretions in the right sphenoid sinus, may represent sinusitis or mucosal hemorrhage. Reviewed, dictated and finalized at location K. WORKER IMPRESSION: No acute intracranial process. Aerated secretions in the right sphenoid sinus, may represent sinusitis or muco jose hemorrhage.
--- NOTE | ~2024-01-27 | CT_ITS ---
EXAMINATION: CT cervical spine wo con DATE: 01/27/2024 18:35 INDICATION: Fall / Etoh TECHNIQUE: Computed tomography (CT) of the cervical spine was performed without intravenous contrast. Automated exposure control and iterative reconstruction technique were employed. The dose-length pro duct was 147.05 mGy-cm. COMPARISON: None. FINDINGS: Mild motion artifact in the mid cervical spine. Vertebral Body Alignment: Intact. Craniocervical and atlantoaxial alignment: Mild degenerative change. Alignment intact. Osseous structures/fracture: No evidence of a lytic or blastic process in the visualized spine. Mild ly displaced fracture of the tip of the C6 spinous process. Cervical soft tissues: The paraspinal soft tissues planes are maintained. Biapical pleural scarring. Degenerative changes: Degenerative changes, without severe neural foraminal or central canal narrowin g. IMPRESSION: Mildly displaced fracture of the tip of the C6 spinous process (yasmin mixing house operator's type fracture). No ad ditional fracture or traumatic malalignment in the cervical spine. Reviewed, dictated and finalized at location K. DESIGNER IMPRESSION: Mildly displaced fracture of the tip of the C6 spinous process (yasmin mixing house operator's type fracture). No additional fracture or traumatic malalignment in the cervic al spine.
[2024-01-27 17:01] VITALS: BP 148/87; PULSE 103; RESP 18; O2SAT 95
[2024-01-27 17:10] VITALS: BP 148/87; PULSE 84; RESP 12; TEMP 36.2; O2SAT 98
--- NOTE | 2024-01-27 17:14 | PC.NURSE ---
pt sleeping, no distress noted at this time
[2024-01-27 18:00] VITALS: BP 95/62; PULSE 89; RESP 16; O2SAT 98
--- NOTE | 2024-01-27 18:38 | PC.NURSE ---
CT alerted this RN that pt. accidently removed IV in CT. Removal charted.
[2024-01-27 18:59] LABS: Basophils Absolute Auto 0.1 K/mm3 (0.0-0.1); Basophils Percent Auto 0.8 % (0.2-1.2); Eosinophils Percent Auto 0.4 % (0-4.4); Hematocrit 44.3 % (37.0-47.0); Hemoglobin 14.5 g/dL (12.0-15.0); Immature Granulocyte Absolute 0.02 K/mm3 (0.00-0.031); Immature Granulocyte Percent A 0.2 % (0-0.5); Lymphocytes Absolute Auto 4.79 K/mm3 (0.9-3.2); Lymphocytes Percent Auto 45.7 % (18.3-44.2); Mean Corpuscular HGB Conc 32.7 g/dl (32-36); Mean Corpuscular Volume 91.5 fl (80-100); Mean Platelet Volume 8.6 fl (7.4-10.4); Monocytes Absolute Auto 0.4 K/mm3 (0.1-0.6); Monocytes Percent Auto 3.6 % (2.6-8.5); Neutrophils Absolute Auto 5.2 K/mm3 (1.3-6.7); Neutrophils Percent Auto 49.3 % (45.5-73.1); Platelet Count Result 316 k/mm3 (150-375); Red Blood Count 4.84 M/mm3 (4.2-5.4); White Blood Count 10.5 K/mm3 (4.5-10.0)
[2024-01-27] MEDS: SODIUM CHLORIDE 0.9% IV 2,000 ML 999 ML IV CONT (18:59)
[2024-01-27] MEDS: THIAMINE 500 MG/NS 100 ML 500 MG/100 ML BAG 200 MG IVPB (19:00)
[2024-01-27 19:10] LABS: Alanine Aminotransferase 51 U/L (6-35); Albumin Level 4.6 g/dL (3.5-5.1); Alkaline Phosphatase 88 U/L (38-126); Anion Gap 12 mmol/L (4-12); Aspartate Amino Transferase 59 U/L (14-36); Bilirubin,Total 0.3 mg/dL (0.2-1.3); Blood Urea Nitrogen 9 mg/dL (7-17); Carbon Dioxide 27 mmol/L (22-30); Chloride 109 mmol/L (98-107); Estimated CRCL calculation 99 ml/min; Estimated Glomerular Filt Rate > 60; Glucose 147 mg/dL (65-110); Potassium 3.7 mmol/L (3.4-5.0); Sodium 148 mmol/L (137-145)
[2024-01-27 19:12] LABS: INR 0.9; Partial Thromboplastin Time 23.1 Seconds (22.3-36.8); Prothrombin Time 12.9 Seconds (11.1-14.7)
[2024-01-27 19:17] LABS: Lipase 35 U/L (23-300); Magnesium 2.1 mg/dL (1.6-2.3); Phosphorus 4.3 mg/dL (2.5-4.5)
[2024-01-27 19:39] LABS: Ethanol 446 mg/dL (<10)
--- NOTE | 2024-01-27 19:42 | ED_ITS ---
HPI - General Adult General Chief complaint: Fall Stated complaint: glf, +ETOH Time Seen by Provider: 01/27/24 17:11 History of Present Illness HPI narrative: This is a 40-year-old female with history of chronic alcohol use presenting for a alcohol intoxication ground level fall. Per EMS she was at a bar where she was drinking large amounts of alcohol. She then went outside and she was found laying in the street. Initially she was difficult to arouse but then once awake she made multiple inappropriate comments to the paramedics. On my exam the patient is sleeping but arousable. She is able to answer questions appropriately. She admits using a large amount of alcohol. No other complaints. She denies pain anywhere. Related Data Home Medications Medication Instructions Recorded Confirmed loratadine 10 mg tablet 10 mg PO DAILY 10/12/23 10/12/23 Allergies Allergy/AdvReac Type Severity Reaction Status Date / Time methylprednisolone AdvReac Nausea and Verified 10/12/23 08:34 [From Medrol] Vomiting PMFSH Past Medical History Medical History ETOH abuse Surgical History Surgical History (Updated 10/13/23 @ 03:31 by Vicenta Swift DO) Hx of cholecystectomy Family History Family History (Updated 10/13/23 @ 03:32 by Vicenta Swift DO) Father Peripheral artery disease Heart disease Hx of CABG, Onset Age: 60 Mother Anxiety Social History Social History (Updated 10/13/23 @ 03:25 by Vicenta Swift DO) Social History: Patient reports he moved here in 2022 to help her mother take care of her father who had recent amputation. 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 She has drink alcohol heavily for several years. She reports that she drinks 4-5 shots of whiskey a day. Her boyfriend reports she drinks much more. She started smoking 3 cigarettes when she moved in with her parents who both smoke. She denies history of illicit substance use. She does not have any children. Code status: Full code Surrogate decision maker: Martha Mishra (mother) Smoking packs per day: 0.25 Smoking cigarettes per day: 5.0 Years smoked: 1 Smoking pack-years: 0.25 Smoking status: Current every day smoker Alcohol intake: current Drinks per week: 35 Alcohol use details: drinks at least 5-6 shots of whiskey daily Substance use: never Do You Feel Safe in your Home?: Yes Lack of Transportation: No Lack of Food: Never True Current Housing: I Have Housing Concerned About Future Housing: No Difficulty Paying Gas/Electric Bills: No Difficulty Paying for Meds: No Currently Unemployed: No Education: Decline to Answer Difficulty w/ Childcare or Family Care: No Spiritual care concerns: No Exam Narrative: APPEARANCE: No apparent distress. A&0x3 Head: Small hematoma over the forehead, EYES: EOMI, NOSE: minor abrasions over the nose NECK: Soft, supple, no midline cervical tenderness, full range of motion on extension, flexion, rotation, tilt. RESPIRATORY: No increased rate of breathing, CTAB CARDIOVASCULAR: RRR, no peripheral edema ABDOMINAL: Non-distended, soft nontender MUSCULOSKELETAl: no deformities/bruising, areas of tenderness. NEURO: Alert. Moving 4/4 extremities SKIN:: Warm, dry. Normal color PSYCHIATRIC: Normal affect Course Vital Signs Vital signs: Vital Signs Temperature 97.1 F L 01/27/24 17:10 Pulse Rate 84 01/27/24 17:10 Respiratory Rate 12 01/27/24 17:10 Blood Pressure 148/87 H 01/27/24 17:10 Pulse Oximetry 98 01/27/24 17:10 Oxygen Delivery Room Air 01/27/24 17:10 Temperature 97.1 F L 01/27/24 17:10 Pulse Rate 84 01/27/24 17:10 Respiratory Rate 12 01/27/24 17:10 Blood Pressure 148/87 H 01/27/24 17:10 Pulse Oximetry 98 01/27/24 17:10 Oxygen Delivery Room Air 01/27/24 17:10 Medical Decision Making [facility] Narrative Medical decision making narrative: -Course: This is a 48 patient w/ a hx of etoh abuse who has minor facial trauma from a fall while intoxicated. CT head negative. CT C-spine showed a mildly d isplaced C6 spinous process fracture. On exam the patient has no pain over her C6. She has no pain with full range of motion of the neck. Normal neurologic exam. No previous cervical spines CTs to compare to if this is an old injury. Patient placed in an [place] collar and given Neurosurgery follow-up Alcohol level is elevated, however the patient is holding a normal conversation and walking with a steady gait. Family was contacted and they are able to take the patient home and keep an eye on her overnight. Given return precautions. -DDX includes but is not limited to: Alcohol intoxication, substance use disorder, current intracranial hemorrhage, bony injury, soft tissue injury -Co-morbidities complicating care: etoh abuse -Social determinants of health: History of alcohol abuse -External Chart Review: Review previous admissions for alcohol withdrawal -Hx from independent Sources: Family bedside -Independent interpretation of studies: Labs reviewed Imaging reviewed CT cervical spine showed C6 spinous process fracture. -Interventions: 2 L normal saline, thiamine -Shared decision making / Disposition: Discharge Vital Signs Vital Signs: Vital Signs Temperature 97.1 F L 01/27/24 17:10 Pulse Rate 84 01/27/24 17:10 Respiratory Rate 12 01/27/24 17:10 Blood Pressure 148/87 H 01/27/24 17:10 Pulse Oximetry 98 01/27/24 17:10 Oxygen Delivery Room Air 01/27/24 17:10 Temperature 97.1 F L 01/27/24 17:10 Pulse Rate 84 01/27/24 17:10 Respiratory Rate 12 01/27/24 17:10 Blood Pressure 148/87 H 01/27/24 17:10 Pulse Oximetry 98 01/27/24 17:10 Oxygen Delivery Room Air 01/27/24 17:10 Lab Data 01/27/24 18:53 01/27/24 18:53 Labs: Lab Results 01/27/24 01/27/24 01/27/24 Range/Units 18:53 18:53 18:53 WBC 10.5 H (4.5-10.0) K/mm3 RBC 4.84 (4.2-5.4) M/mm3 Hgb 14.5 D (12.0-15.0) g/dL Hct 44.3 (37.0-47.0) % MCV 91.5 (80-100) fl MCH 30.0 (26-34) pg MCHC 32.7 (32-36) g/dl RDW 18.0 H (11.5-14.5) % Plt Count 316 (150-375) k/mm3 MPV 8.6 (7.4-10.4) fl Immature Gran % (Auto) 0.2 (0-0.5) % Neut % (Auto) 49.3 (45.5-73.1) % Lymph % (Auto) 45.7 H (18.3-44.2) % [place] % (Auto) 3.6 (2.6-8.5) % Eos % (Auto) 0.4 (0-4.4) % Baso % (Auto) 0.8 (0.2-1.2) % Lymph # (Auto) 4.79 H (0.9-3.2) K/mm3 [place] # (Auto) 0.4 (0.1-0.6) K/mm3 Eos # (Auto) 0.0 (0-0.3) K/mm3 Baso # (Auto) 0.1 (0.0-0.1) K/mm3 Abs Immat Gran (auto) 0.02 (0.00-0.031) K/mm3 Absolute Neuts (auto) 5.2 (1.3-6.7) K/mm3 Absolute Nucleated RBC 0.000 (0.0-0.012) K/mm3 Nucleated RBC % 0.0 (0.0-0.2) % PT 12.9 (11.1-14.7) Seconds INR 0.9 APTT 23.1 (22.3-36.8) Seconds Sodium 148 H (137-145) mmol/L Potassium 3.7 (3.4-5.0) mmol/L Chloride 109 H (98-107) mmol/L Carbon Dioxide 27 (22-30) mmol/L Anion Gap 12 (4-12) mmol/L BUN 9 (7-17) mg/dL Creatinine 0.50 L (0.7-1.0) mg/dL Estim Creat Clear Calc 99 ml/min Estimated GFR > 60 (59 - ) Glucose 147 H (65-110) mg/dL Calcium 9.0 (8.4-10.2) mg/dL Phosphorus 4.3 Cancelled (2.5-4.5) mg/dL Magnesium 2.1 Cancelled (1.6-2.3) mg/dL Total Bilirubin 0.3 (0.2-1.3) mg/dL AST 59 H (14-36) U/L ALT 51 H (6-35) U/L Alkaline Phosphatase 88 (38-126) U/L Total Protein 8.0 (6.3-8.2) g/dL Albumin 4.6 (3.5-5.1) g/dL Lipase 35 (23-300) U/L Urine Color Urine Appearance Urine pH Ur Specific [place] Urine Protein Urine Glucose (UA) Urine Ketones Ur Blood (Man) Urine Nitrate Urine Bilirubin Urine Urobilinogen Leukocyte Esterase Rfl Urine Opiates Screen Urine Methadone Screen Ur Barbiturates Screen Ur Phencyclidine Scrn Ur Amphetamine Screen U Benzodiazepines Scrn Urine Cocaine Screen U Cannabinoids Screen Ethyl Alcohol (<10) mg/dL 01/27/24 01/27/24 Range/Units 18:53 20:00 WBC (4.5-10.0) K/mm3 RBC (4.2-5.4) M/mm3 Hgb (12.0-15.0) g/dL Hct (37.0-47.0) % MCV (80-100) fl MCH (26-34) pg MCHC (32-36) g/dl RDW (11.5-14.5) % Plt Count (150-375) k/mm3 MPV (7.4-10.4) fl Immature Gran % (Auto) (0-0.5) % Neut % (Auto) (45.5-73.1) % Lymph % (Auto) (18.3-44.2) % [place] % (Auto) (2.6-8.5) % Eos % (Auto) (0-4.4) % Baso % (Auto) (0.2-1.2) % Lymph # (Auto) (0.9-3.2) K/mm3 [place] # (Auto) (0.1-0.6) K/mm3 Eos # (Auto) (0-0.3) K/mm3 Baso # (Auto) (0.0-0.1) K/mm3 Abs Immat Gran (auto) (0.00-0.031) K/mm3 Absolute Neuts (auto) (1.3-6.7) K/mm3 Absolute Nucleated RBC (0.0-0.012) K/mm3 Nucleated RBC % (0.0-0.2) % PT (11.1-14.7) Seconds INR APTT (22.3-36.8) Seconds Sodium (137-145) mmol/L Potassium (3.4-5.0) mmol/L Chloride (98-107) mmol/L Carbon Dioxide (22-30) mmol/L Anion Gap (4-12) mmol/L BUN (7-17) mg/dL Creatinine (0.7-1.0) mg/dL Estim Creat Clear Calc ml/min Estimated GFR (59 - ) Glucose (65-110) mg/dL Calcium (8.4-10.2) mg/dL Phosphorus (2.5-4.5) mg/dL Magnesium (1.6-2.3) mg/dL Total Bilirubin (0.2-1.3) mg/dL AST (14-36) U/L ALT (6-35) U/L Alkaline Phosphatase (38-126) U/L Total Protein (6.3-8.2) g/dL Albumin (3.5-5.1) g/dL Lipase Cancelled (23-300) U/L Urine Color Pending Urine Appearance Pending Urine pH Pending Ur Specific [place] Pending Urine Protein Pending Urine Glucose (UA) Pending Urine Ketones Pending Ur Blood (Man) Pending Urine Nitrate Pending Urine Bilirubin Pending Urine Urobilinogen Pending Leukocyte Esterase Rfl Pending Urine Opiates Screen Pending Urine Methadone Screen Pending Ur Barbiturates Screen Pending Ur Phencyclidine Scrn Pending Ur Amphetamine Screen Pending U Benzodiazepines Scrn Pending Urine Cocaine Screen Pending U Cannabinoids Screen Pending Ethyl Alcohol 446 H* (<10) mg/dL Discharge Plan Discharge Clinical Impression: Acute alcoholic intoxication, Fracture of spinous process of cervical vertebra Patient Disposition: Home, Self-Care Condition: Stable Instructions: Antibiotic Form, Cervical Fracture (DC), Alcohol Intoxication (DC) Additional Instructions: You you were seen emergency department for alcohol intoxication. Please drink responsibly. Please see the following resources for alcohol cessation. You are also found to have a C6 spinous fracture. You do not have any pain in this area it is unclear if this is an old injury. Please wear the collar until you are evaluated by Neurosurgery. Call the clinic below to arrange follow-up Prescriptions: No Action loratadine 10 mg Tablet 10 mg PO DAILY thiamine HCl (vitamin B1) [Vitamin B-1] 100 mg Tablet 100 mg PO QAM Qty: 30 0RF Follow-up/Referrals: UNKNOWN,DOCTOR [Primary Care Provider] -
[2024-01-27 20:00] VITALS: BP 139/67; PULSE 100; RESP 15; O2SAT 98
[2024-01-27 20:07] LABS: Add Urine Microscopic? NO; Appearance Urine Clear (Clear); Bilirubin Urine Negative (Negative); Blood Urine Negative (Negative); Color Urine Yellow (Yellow); Glucose Urine UA Negative (Negative); Ketones Urine Negative (Negative); Leukocyte Esterase Ur Negative LEU/UL (Negative); Nitrate Urine Negative (Negative); Protein Urine Negative (Negative); Specific Grav Ur 1.007 (1.001-1.035); Urobilinogen Urine 0.2 mg/dL (<2.0)
[2024-01-27 20:24] LABS: Amphetamine Screen Urine Negative (Negative); Barbiturate Screen Urine Negative (Negative); Benzodiazepines Screen Urine Negative (Negative); Cannabinoid Screen Urine Positive (Negative); Cocaine Screen Urine Negative (Negative); Methadone Screen Urine Negative (Negative); Opiate Screen Urine Negative (Negative); Phencyclidine Screen Urine Negative (Negative)
[2024-01-27 20:30] VITALS: BP 113/67; PULSE 78; RESP 16; O2SAT 100
== END 2024-01-27 20:50 | disposition home or self-care (01) ==
PROVIDERS: Emergency Provider Emergency Medicine
DX: S12.500A Unspecified displaced fracture of sixth cervical vertebra, initial encounter for closed fracture (principal); F10.129 Alcohol abuse with intoxication, unspecified; W18.30XA Fall on same level, unspecified, initial encounter; F17.210 Nicotine dependence, cigarettes, uncomplicated
CPT/HCPCS: 36415; 70450; 72125; 80053; 80307; 81003; 82077; 83690; 83735; 84100; 85025; 85610; 85730; 96365; 99284; J3411; J7030; L0140

== ENCOUNTER 2024-11-05 12:44 | Emergency (ER) | payer OTHER, SELFPAY ==
[2024-11-05 12:48] VITALS: BP 142/74; PULSE 110; RESP 17; TEMP 36.6; O2SAT 100
--- NOTE | 2024-11-05 14:28 | PC.NURSE ---
Pt ambulatory to intake desk w/ steady gait, requesting bracelet to be removed - declining to see a provider. Pt is A&Ox4 and has a ride picking her up from the [address]. Pt seen exiting in NAD.
== END 2024-11-05 14:54 | disposition left against medical advice (07) ==
LOC: ANHED 14:32
DX: R55 Syncope and collapse (principal)
CPT/HCPCS: 99199